=== PATIENT | male | born 1995 | race Caucasian/White ===

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

== ENCOUNTER 2017-10-10 16:12 | Emergency (ER) | payer BC, OTHER ==
[~2017-10-10] VITALS: Ht 182.9 cm; Wt 82.7 kg
[2017-10-10 17:26] LABS: MEAN CORPUSCULAR HEMOGLOBIN 28.8 pg (27.5-34.5); MEAN CORPUSCULAR HGB CONC 33.3 g/dL (33.2-36.2); MEAN CORPUSCULAR VOLUME 86.6 fL (81-97); MEAN PLATELET VOLUME 9.1 fL (7.4-10.4); PLATELET COUNT 141 x10^3/uL (130-400); RED BLOOD COUNT 5.54 x10^6/uL (4.38-5.82); RED CELL DISTRIBUTION WIDTH 13.4 % (9.4-14.8)
[2017-10-10 17:38] LABS: ALANINE AMINOTRANSFERASE 116 U/L (12-78); ALBUMIN 4.5 g/dL (3.4-5.0); ANION GAP 10 mmol/L (5-15); CHLORIDE 105 mmol/L (98-107); CREATININE 1.02 mg/dL (0.7-1.3)
[2017-10-10 17:40] LABS: ALKALINE PHOSPHATASE 85 U/L (45-117); BILIRUBIN,TOTAL 0.8 mg/dL (0.2-1.0)
[2017-10-10 17:49] LABS: MD YES
[2017-10-10 17:51] LABS: BAND#(MANUAL) 0.05 x10^3/uL; BANDS%(MANUAL) 1 % (0-7); LYMPH#(MANUAL) 1.11 x10^3/uL (1-6.1); LYMPHS% (MANUAL) 21 % (22-44); MONOS#(MANUAL) 0.05 x10^3/uL (0.3-2.7); MONOS% (MANUAL) 1 % (2-9); REACTIVE LYMPHS # (MANUAL) 0.74 x10^3/uL (0-0); REACTIVE LYMPHS % (MANUAL) 14 % (0-0); SEG#(MANUAL) 3.34 x10^3/uL (1.8-8); SEGS% (MANUAL) 63 % (42-75)
[2017-10-10 17:52] LABS: <PLATELET ESTIMATE> ADEQUATE; <PLT MORPHOLOGY> NORMAL PLT MORPH; <RBC MORPHOLOGY> NORMAL
[2017-10-10] MEDS ORDERED: CLAR500T PO (18:47)
[2017-10-10] MEDS ORDERED: SODIUM CHLORIDE 0.9% 1,000 ML IV ONE (18:50)
[2017-10-10] MEDS ORDERED: SODIUM CHLORIDE FLUSH 10ML SYR IVF ONE (19:00)
[2017-10-10 20:06] VITALS: BP 138/64
== END 2017-10-10 20:09 | disposition home or self-care (01) ==
LOC: ED 19:50
DX: L04.0 Acute lymphadenitis of face, head and neck (principal)
CPT/HCPCS: 36415; 70491; 80053; 85025; 99285